=== PATIENT | male | born 2000 | race Caucasian/White ===

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

== ENCOUNTER 2021-10-25 15:37 | Outpatient (REF) | payer BC, SELFPAY ==
[2021-10-28 10:57] LABS: HIV-1/2 Ag & Ab Screen Negative (Negative)
[2021-10-28 14:47] LABS: Chlamydia Result Negative (Negative); GC Result Negative (Negative)
== END 2021-10-25 15:38 | disposition home or self-care (01) ==
LOC: NCHCN 15:37
PROVIDERS: PCP Pediatrics; Visit Provider Registered Nurse
DX: Z11.3 Encounter for screening for infections with a predominantly sexual mode of transmission (principal); Z11.4 Encounter for screening for human immunodeficiency virus [HIV]
CPT/HCPCS: 87389; 87491; 87591